=== PATIENT | female | born 1955 | race Caucasian/White ===

== ENCOUNTER 2024-09-13 11:32 | Emergency (ER) | payer SELFPAY ==
[~2024-09-13] VITALS: Ht 162.6 cm; Wt 85.0 kg
[2024-09-13 11:37] VITALS: BP 178/85; PULSE 92; RESP 16; TEMP 98.6; O2SAT 98
[2024-09-13] MEDS ORDERED: ACET-2708 MT (12:41)
[2024-09-13] MEDS ORDERED: BO1 TP (12:41)
[2024-09-13] MEDS: TETANUS, DIPHTHERIA, PERTUSSIS VAC/PF 0.5ML (>10YR OLD) IM ONE (12:42)
[2024-09-13] MEDS ORDERED: AMOX250S70 MT (12:43)
[2024-09-13] MEDS ORDERED: LIDOCAINE HCL 1% 20ML VIAL INFIL ONE (12:45)
[2024-09-13] MEDS: BACITRACIN ZINC OINT UDPKT TOP ONE (12:55)
== END 2024-09-13 13:13 | disposition home or self-care (01) ==
LOC: ER 11:32
DX: S61.215A Laceration without foreign body of left ring finger without damage to nail, initial encounter (principal); E78.00 Pure hypercholesterolemia, unspecified; I10 Essential (primary) hypertension; W22.09XA Striking against other stationary object, initial encounter; Y93.89 Activity, other specified; Y92.89 Other specified places as the place of occurrence of the external cause; Y99.8 Other external cause status
CPT/HCPCS: 90715; 12002; 90471; 99283; Z7610 ×2; 96372